=== PATIENT | female | born 1960 | race Asian ===

== ENCOUNTER 2021-12-23 09:23 | Day surgery (SDC) | payer OTHER ==
[~2021-12-23 09:23] MED LIST: Metoclopramide 10 MG/2 ML SDV IV PRN
[2021-12-23] MEDS: Sodium Chloride 0.9% 1,000 ML IV SCH (10:17)
[2021-12-23] MEDS ORDERED: Ondansetron 4 MG/2 ML SDV ONE (12:45)
[2021-12-23] MEDS ORDERED: Propofol 1,000 MG/100 ML SDV ONE (12:45)
[2021-12-23 13:21] VITALS: BP 179/94; PULSE 64
[2021-12-23] MEDS: Hydrochlorothiazide 12.5 MG Cap PO ONE (13:24)
[2021-12-23] MEDS: Losartan 50 MG Tab PO ONE (13:24)
== END 2021-12-23 15:05 | disposition home or self-care (01) ==
LOC: LB.SDS 09:23
PROVIDERS: ATTEND Surgery
DX: Z12.11 Encounter for screening for malignant neoplasm of colon (principal); K57.30 Diverticulosis of large intestine without perforation or abscess without bleeding; I10 Essential (primary) hypertension; R73.03 Prediabetes
CPT/HCPCS: A9270-GY; J2405; J2704; J7030

== ENCOUNTER 2025-07-06 12:20 | Emergency (ER) | payer OTHER ==
[2025-07-06] MEDS ORDERED: Sodium Chloride 0.9% 10 ML Syringe FLUSH PRN (13:29)
[2025-07-06 13:49] LABS: MEAN PLATELET VOLUME 9.2 fL (6.0-10.0); PLATELET COUNT,PLT 402.0 K/uL (150-500); RED BLOOD CELL COUNT 3.43 M/uL (3.80-5.80); RED CELL DISTRIBUTION WIDTH 12.3 % (11.0-16.0); WHITE BLOOD CELL COUNT,WBC 8.1 K/uL (4.0-11.0)
[2025-07-06 14:05] LABS: BLOOD UREA NITROGEN,BUN 16.0 mg/dL (8-26); CARBON DIOXIDE,CO2 28.4 mmol/L (21.0-32.0); CHLORIDE,CL 104.0 mmol/L (98-107); CREATININE 1.0 mg/dL (0.55-1.02); EST CRCL DRUG DOSING (CG) 40.82 mL/min; ESTIMATED GFR 63.0 mL/min (>60); GLUCOSE RANDOM 95.0 mg/dL (74-100); POTASSIUM,K 3.7 mmol/L (3.5-5.1); SODIUM,NA 140.0 mmol/L (136-145)
== END 2025-07-06 19:10 | disposition home or self-care (01) ==
LOC: LB.ED 12:20
DX: K92.2 Gastrointestinal hemorrhage, unspecified (principal); D62 Acute posthemorrhagic anemia; I10 Essential (primary) hypertension; E11.9 Type 2 diabetes mellitus without complications; Z86.16 Personal history of COVID-19; Z79.899 Other long term (current) drug therapy
CPT/HCPCS: 36415; 74177; 80048; 83735; 85027; 86140; 96361; 96374; 99284; 99285-25; J2470; J7030